=== PATIENT | female | born 1965 | race Caucasian/White ===

== ENCOUNTER → 2017-02-07 | Outpatient (CLI) | payer OTHER ==
[~2017-02-07] MED LIST: GABA300C1 PO
[2017-02-07 08:48] LABS: EOSINOPHILS # (AUTO) 0.2 K/uL (0-0.4)
[2017-02-07 08:51] LABS: BASOPHILS % (AUTO) 0.3 % (0.0-2.0); EOSINOPHILS % (AUTO) 1.5 % (0.0-4.0); HEMATOCRIT 46.4 % (36-48); HEMOGLOBIN 14.5 g/dL (12.0-16.0); LYMPHOCYTES % (AUTO) 8.2 % (20.5-51.1); MEAN CORPUSCULAR HEMOGLOBIN 28 pg (27-31); MEAN CORPUSCULAR HGB CONC 31 g/dL (33-37); MEAN CORPUSCULAR VOLUME 90 fL (80-94); MONOCYTES # (AUTO) 0.8 K/uL (0.8-1.0); MONOCYTES % (AUTO) 6.5 % (1.7-9.3); NEUTROPHILS # (AUTO) 9.8 K/uL (1.8-7.7); NEUTROPHILS % (AUTO) 83.5 % (42.2-75.2); PLATELET COUNT (AUTO) 337 K/uL (140-450); RED BLOOD CELL COUNT(AUTO) 5.15 MIL/uL (4.20-5.40); RED CELL DISTRIBUTION WIDTH 17.1 % (11.6-13.7); WHITE BLOOD COUNT (AUTO) 11.8 K/uL (4.8-10.8)
[2017-02-07 09:38] LABS: ALBUMIN 3.5 g/dL (3.4-5.0); ANION GAP 10.9 (8-16); CALCIUM 8.8 mg/dL (8.5-10.1); CARBON DIOXIDE 30.3 mmol/L (21-32); CREATININE 0.8 mg/dL (0.6-1.3); POTASSIUM 4.2 mmol/L (3.5-5.1); THYROID STIMULATING HORMONE 3.42 uIU/mL (0.34-3.76); TOTAL BILIRUBIN 0.4 mg/dL (0.0-1.0); TOTAL PROTEIN, SERUM 7.4 g/dL (6.4-8.2)
[2017-02-07 10:05] LABS: CHOL/HDL RATIO 2.6 (1-4.5)
[2017-02-09 09:08] LABS: VITAMIN D, 25-HYDROXY 42.2 ng/mL (30.0-100.0)
[2017-02-09 13:09] LABS: HEMOGLOBIN A1C 6.6 % (4.8-5.6)
== END | disposition home or self-care (01) ==
LOC: MLB 08:05
PROVIDERS: ATTEND Internal Medicine Geriatric Medicine
DX: E11.9 Type 2 diabetes mellitus without complications (principal)
CPT/HCPCS: 36415; 80053; 82043; 82306; 83036; 84443; 85025

== ENCOUNTER 2017-03-03 10:37 | Outpatient (CLI) | payer OTHER ==
[2017-03-03 12:02] LABS: HEMOGLOBIN 14.2 g/dL (12.0-16.0); MEAN CORPUSCULAR HEMOGLOBIN 28 pg (27-31); MEAN CORPUSCULAR HGB CONC 31 g/dL (33-37); MEAN CORPUSCULAR VOLUME 90 fL (80-94); PLATELET COUNT (AUTO) 372 K/uL (140-450); RED BLOOD CELL COUNT(AUTO) 4.99 MIL/uL (4.20-5.40); WHITE BLOOD COUNT (AUTO) 13.4 K/uL (4.8-10.8)
[2017-03-03 12:10] LABS: ALBUMIN 3.8 g/dL (3.4-5.0); ANION GAP 11.7 (8-16); CALCIUM 9.7 mg/dL (8.5-10.1); CARBON DIOXIDE 31.6 mmol/L (21-32); CREATININE 0.7 mg/dL (0.6-1.3); POTASSIUM 4.3 mmol/L (3.5-5.1); TOTAL BILIRUBIN 0.5 mg/dL (0.0-1.0); TOTAL PROTEIN, SERUM 7.7 g/dL (6.4-8.2)
[2017-03-03 13:23] LABS: BAND % (MANUAL) 5 % (0-8); EOSINOPHILS % (MANUAL) 1 % (0-4); LYMPHOCYTES % (MANUAL) 6 % (20-46); MONOCYTES % (MANUAL) 3 % (5-12); NEUTROPHILS % (MANUAL) 85 (43-65); PLATELET ESTIMATE ADEQUATE
[2017-03-04 11:43] LABS: CANCER ANTIGEN 125 401.7 U/mL (0.0-38.1); CARCINOEMBRYONIC AG 117.5 ng/mL (0.0-4.7)
[2017-03-04 16:51] LABS: HEMOGLOBIN A1C 6.5 % (4.8-5.6)
[2017-03-05 09:30] LABS: ALDOLASE SERUM 8.2 U/L (3.3-10.3)
== END 2017-03-03 19:59 | disposition home or self-care (01) ==
LOC: MLB 10:37
PROVIDERS: ATTEND Internal Medicine Geriatric Medicine
DX: N63 Unspecified lump in breast (principal); Z85.038 Personal history of other malignant neoplasm of large intestine
CPT/HCPCS: 36415; 80053; 82085; 82378; 83036; 83520; 85025; 85651; 86140; 86304

== ENCOUNTER 2017-04-14 18:20 | Outpatient (CLI) | payer OTHER ==
[2017-04-16 15:13] LABS: ANTI-MYELOPEROXIDASE (MPO) <9.0 U/mL (0.0-9.0); ANTI-PROTEINASE 3 (PR-3) AB <3.5 U/mL (0.0-3.5); ATYPICAL pANCA <1:20 titer (Neg:<1:20); PERINUCLEAR (P-ANCA) <1:20 titer (Neg:<1:20)
== END 2017-04-14 20:33 | disposition home or self-care (01) ==
LOC: MLB 18:20
DX: R23.3 Spontaneous ecchymoses (principal)
CPT/HCPCS: 36415

== ENCOUNTER 2017-04-19 11:04 | Outpatient (CLI) | payer OTHER | END 2017-04-19 21:55 | disposition home or self-care (01) | LOC: MLB 11:04 | PROVIDERS: ATTEND Obstetrics & Gynecology | DX: N83.209 Unspecified ovarian cyst, unspecified side (principal) | CPT/HCPCS: 36415; 86304 ==

== ENCOUNTER 2017-04-21 18:13 | Outpatient (CLI) | payer OTHER ==
[2017-04-21 18:46] LABS: BASOPHILS % (AUTO) 0.3 % (0.0-2.0); EOSINOPHILS # (AUTO) 0.2 K/uL (0-0.4); EOSINOPHILS % (AUTO) 1.9 % (0.0-4.0); HEMATOCRIT 40.4 % (36-48); HEMOGLOBIN 12.9 g/dL (12.0-16.0); LYMPHOCYTES # (AUTO) 0.8 K/uL (2.5-16.5); LYMPHOCYTES % (AUTO) 7.4 % (20.5-51.1); MEAN CORPUSCULAR HEMOGLOBIN 29 pg (27-31); MEAN CORPUSCULAR HGB CONC 32 g/dL (33-37); MEAN CORPUSCULAR VOLUME 89 fL (80-94); MONOCYTES # (AUTO) 0.6 K/uL (0.8-1.0); MONOCYTES % (AUTO) 5.8 % (1.7-9.3); NEUTROPHILS # (AUTO) 9.1 K/uL (1.8-7.7); NEUTROPHILS % (AUTO) 84.6 % (42.2-75.2); PLATELET COUNT (AUTO) 441 K/uL (140-450); RED BLOOD CELL COUNT(AUTO) 4.52 MIL/uL (4.20-5.40); RED CELL DISTRIBUTION WIDTH 17.4 % (11.6-13.7); WHITE BLOOD COUNT (AUTO) 10.7 K/uL (4.8-10.8)
[2017-04-21 19:04] LABS: INR 1.1 (0.8-1.2); PARTIAL THROMBOPLASTIN TIME 27.3 secs (22-35.6); PROTHROMBIN TIME 10.9 secs (10.8-13.4)
[2017-04-21 19:05] LABS: ANION GAP 14.8 (8-16); CREATININE 0.7 mg/dL (0.6-1.3); POTASSIUM 3.8 mmol/L (3.5-5.1); TOTAL BILIRUBIN 0.4 mg/dL (0.0-1.0); TOTAL PROTEIN, SERUM 7.4 g/dL (6.4-8.2)
== END 2017-04-21 20:12 | disposition home or self-care (01) ==
LOC: MLB 18:13
DX: I10 Essential (primary) hypertension (principal); E11.9 Type 2 diabetes mellitus without complications; Z85.038 Personal history of other malignant neoplasm of large intestine
CPT/HCPCS: 36415; 80053; 82378; 85025; 85610; 85730

== ENCOUNTER 2017-06-05 16:02 | Inpatient (IN) | payer OTHER ==
[~2017-06-05] VITALS: Ht 154.9 cm; Wt 74.4 kg
[2017-06-05 16:26] VITALS: BP 161/96
[2017-06-05] MEDS ORDERED: ONDANSETRON 4 MG/2 ML VIAL IVP ONE (16:40)
--- NOTE | 2017-06-05 16:49 | NUR ---
PATIENT IN OF. PATIENT TAKEN FOR CXR VIA W/C
[2017-06-05 16:56] LABS: BASOPHILS % (AUTO) 0.3 % (0.0-2.0); EOSINOPHILS # (AUTO) 0.1 K/uL (0-0.4); EOSINOPHILS % (AUTO) 0.9 % (0.0-4.0); HEMATOCRIT 35.7 % (36-48); HEMOGLOBIN 11.2 g/dL (12.0-16.0); LYMPHOCYTES # (AUTO) 1.5 K/uL (2.5-16.5); MEAN CORPUSCULAR HEMOGLOBIN 28 pg (27-31); MEAN CORPUSCULAR HGB CONC 32 g/dL (33-37); MEAN CORPUSCULAR VOLUME 89 fL (80-94); MONOCYTES # (AUTO) 0.8 K/uL (0.8-1.0); MONOCYTES % (AUTO) 5.9 % (1.7-9.3); NEUTROPHILS # (AUTO) 11.2 K/uL (1.8-7.7); NEUTROPHILS % (AUTO) 81.9 % (42.2-75.2); PLATELET COUNT (AUTO) 535 K/uL (140-450); RED BLOOD CELL COUNT(AUTO) 4.03 MIL/uL (4.20-5.40); RED CELL DISTRIBUTION WIDTH 17.6 % (11.6-13.7); WHITE BLOOD COUNT (AUTO) 13.6 K/uL (4.8-10.8)
[2017-06-05 17:13] LABS: AMYLASE 76 U/L (25-115); ANION GAP 14.9 (8-16); CARBON DIOXIDE 29.6 mmol/L (21-32); LIPASE 158 U/L (73-393); POTASSIUM 4.5 mmol/L (3.5-5.1)
[2017-06-05 17:14] LABS: CALCIUM 9.7 mg/dL (8.5-10.1); CREATININE 0.7 mg/dL (0.6-1.3)
[2017-06-05 17:16] LABS: ALBUMIN 2.8 g/dL (3.4-5.0); TOTAL BILIRUBIN 0.4 mg/dL (0.0-1.0); TOTAL PROTEIN, SERUM 7.8 g/dL (6.4-8.2)
[2017-06-05 17:17] LABS: PROTHROMBIN TIME 10.4 secs (10.8-13.4)
[2017-06-05] MEDS ORDERED: FUROSEMIDE 40 MG/4 ML VIAL IVP ONE (17:25)
[2017-06-05] MEDS ORDERED: ONDANSETRON 4 MG/2 ML VIAL IVP PRN (17:40)
[2017-06-05] MEDS ORDERED: ACETAMINOPHEN 325 MG TAB PO PRN (17:40)
[2017-06-05] MEDS ORDERED: HYDROcodone/APAP 7.5/325 MG 1 TAB PO PRN (17:40)
[2017-06-05 18:03] LABS: PARTIAL THROMBOPLASTIN TIME 27.6 secs (22-35.6)
[2017-06-05 18:19] LABS: CHOL/HDL RATIO 5.4 (1-4.5); PHOSPHORUS 3.4 mg/dL (2.5-4.9)
[2017-06-05 18:32] LABS: FREE T4 (FREE THYROXINE) 0.79 ng/dL (0.76-1.46); THYROID STIMULATING HORMONE 8.71 uIU/mL (0.34-3.74)
--- NOTE | 2017-06-05 18:45 | NUR ---
PT ON UNIT. NO S/S OF ACUTE DISTRESS. PT DENIES PAIN. IV SITE PATENT AND INTACT. PT'S DAUGHTER AT BEDSIDE. VS 177/94 HR 87 RR 18 O2 88% ON 3L NC TEMP 100.2. PT DROWSY AT THIS TIME AND UNABLE TO ANSWER QUESTIONS. PT ORIENTED TO ROOM. CALL LIGHT WITHIN REACH. SAFETY MEASURES ENSURED. WILL CONTINUE TO MONITOR.
--- NOTE | 2017-06-05 18:50 | NUR ---
PATIENT PRESENTS TO ED WITH C/O SOB . PT STATES THAT SHE HAS COLON CANCER AND ASCITES WORSENING. DENIES N/V/D; SKIN IS PINK/WARM/DRY; LEFT FOOT PITTING EDEMA NOTED. AAOX4 WITH EVEN AND STEADY GAIT. LUNGS CLEAR BL; HR EVEN AND REGULAR; PATIENT STATES PAIN OF 0/10 AT THIS TIME; VSS; PATIENT POSITIONED FOR COMFORT; HOB ELEVATED; BEDRAILS UP X2; BED DOWN. ER MD MADE AWARE OF PT STATUS.
--- NOTE | 2017-06-05 19:12 | NUR ---
Patient will be admitted to care of . Admited to Telemetry. Will go to room 112B. Belongings list completed. Report to Victoriano.
--- NOTE | 2017-06-05 19:21 | NUR ---
ENDORSED PLAN OF CARE TO NIGHT RN. PT REMAINS STABLE.
--- NOTE | 2017-06-05 19:21 | NUR ---
RECEIVED REPORT FROM DAY RN FOR CONTINUITY OF CARE. PATIENT IS ALERT AND ORIENTED X4, DISCUSSED PLAN OF CARE WITH PATIENT, VERBALIZED UNDERSTANDING. SHIFT ASSESSMENT DONE, VITAL SIGNS TAKEN. PATIENT O2 SAT 88-91% ON ROOM AIR, PLACED ON NASAL CANNULA NOW UP TO 95%. PATIENT DENIES PAIN AT THIS TIME. IV PATENT AND INFUSING FLUIDS WELL. SKIN INTACT. LONG CATHETER IN PLACE DRAINING CLEAR YELLOW URINE TO GRAVITY. MRSA SWAB COLLECTED WRISTBANDS APPLIED. SAFETY/FALL PRECAUTIONS ENFORCED, CALL LIGHT WITHIN REACH. WILL CONTINUE TO MONITOR FREQUENTLY.
[2017-06-05 20:00] VITALS: BP 150/78
--- NOTE | 2017-06-05 20:00 | NUR ---
DR. ESPINOZA AT BESIDE, WILL FOLLOW OUT ORDERS GIVEN.
[2017-06-05] MEDS ORDERED: MORPHINE SULFATE 2 MG/ML SYR IVP PRN (20:05)
[2017-06-05] MEDS ORDERED: HYDR-3423 PO (20:22)
[2017-06-05 20:24] LABS: APPEARANCE,URINE CLEAR (CLEAR); BILIRUBIN,URINE NEGATIVE (NEGATIVE); BLOOD, URINE NEGATIVE (NEGATIVE); COLOR,URINE YELLOW (YELLOW); LEUKOCYTE ESTERASE ,URINE NEGATIVE (NEGATIVE); NITRITE, URINE NEGATIVE (NEGATIVE); PROTEIN,URINE NEGATIVE (NEGATIVE); UGLUCOSE NEGATIVE (NEGATIVE); UROBILINOGEN,URINE 0.2 EU/dL (0.2 - 1)
[2017-06-05] MEDS: DOCUSATE SODIUM 100 MG GELCAP PO SCH (21:04)
[2017-06-05] MEDS: NACL 0.9% 1,000 ML IV SCH (21:05)
--- NOTE | 2017-06-05 21:05 | NUR ---
DUE MEDICATIONS ADMINISTERED, TOLERATED WELL. PATIENT C/O PAIN, MEDICATED PER MD ORDER. CALL LIGHT WITHIN REACH.
--- NOTE | 2017-06-05 23:51 | NUR ---
VITAL SIGNS TAKEN, STABLE. PATIENT C/O ABDOMINAL PAIN, MEDICATED PER MD ORDER. CALL LIGHT WITHIN REACH, WILL CONTINUE TO MONITOR.
[2017-06-06] VITALS: BP 142/85
--- NOTE | 2017-06-06 02:07 | NUR ---
PATIENT SLEEPING AT THIS TIME, CALL LIGHT WITHIN REACH. SAFETY MEASURES ENFORCED.
[2017-06-06] MEDS: SIMVASTATIN 20 MG TAB PO SCH ×2 (03:04→20:56)
[2017-06-06] MEDS: LOSARTAN 50 MG TAB PO SCH ×2 (03:04→09:21)
[2017-06-06] MEDS: FUROSEMIDE 40 MG/4 ML VIAL IVP SCH ×3 (03:33→17:40)
[2017-06-06 04:00] VITALS: BP 142/91
--- NOTE | 2017-06-06 04:10 | NUR ---
VITAL SIGNS STABLE, PATIENT RESTING IN BED, NO S/S OF DISTRESS OR DISCOMFORT NOTED. CALL LIGHT WITHIN REACH.
--- NOTE | 2017-06-06 06:00 | NUR ---
PATIENT RESTING IN BED WATCHING TV, NO S/S OF DISTRESS OR DISCOMFORT NOTED. CALL LIGHT WITHIN REACH.
--- NOTE | 2017-06-06 07:17 | NUR ---
ENDORSED PATIENT TO DAY RN FOR CONTINUITY OF CARE, PATIENT IS IN STABLE CONDITION.
--- NOTE | 2017-06-06 07:20 | NUR ---
RECEIVED REPORT FROM NIGHT RN. PT RESTING IN BED. AAOX4. NO S/S OF ACUTE DISTRESS. PT DENIES PAIN. IV SITE PATENT AND INTACT. LONG CATHETER PATENT. ON O2 3L NC. CALL LIGHT WITHIN REACH. SAFETY MEASURES ENSURED. WILL CONTINUE TO MONITOR.
[2017-06-06 08:00] VITALS: BP 162/98
[2017-06-06] MEDS: DOCUSATE SODIUM 100 MG GELCAP PO SCH ×2 (09:21→20:56)
[2017-06-06] MEDS: HYDROCHLOROTHIAZIDE 25 MG TAB PO SCH (09:21)
--- NOTE | 2017-06-06 09:24 | NUR ---
AM MEDS GIVEN WITH EDUCATIONS. PT VERBALIZES UNDERSTANDING. WILL CONTINUE TO MONITOR.
[2017-06-06 10:28] LABS: BASOPHILS % (AUTO) 0.3 % (0.0-2.0); EOSINOPHILS # (AUTO) 0.1 K/uL (0-0.4); HEMATOCRIT 35.4 % (36-48); HEMOGLOBIN 11.5 g/dL (12.0-16.0); LYMPHOCYTES # (AUTO) 1.4 K/uL (2.5-16.5); LYMPHOCYTES % (AUTO) 11.1 % (20.5-51.1); MEAN CORPUSCULAR HEMOGLOBIN 28 pg (27-31); MEAN CORPUSCULAR HGB CONC 33 g/dL (33-37); MEAN CORPUSCULAR VOLUME 87 fL (80-94); MONOCYTES # (AUTO) 0.9 K/uL (0.8-1.0); MONOCYTES % (AUTO) 7.3 % (1.7-9.3); NEUTROPHILS # (AUTO) 10.1 K/uL (1.8-7.7); NEUTROPHILS % (AUTO) 80.3 % (42.2-75.2); PLATELET COUNT (AUTO) 534 K/uL (140-450); RED BLOOD CELL COUNT(AUTO) 4.08 MIL/uL (4.20-5.40); RED CELL DISTRIBUTION WIDTH 17.3 % (11.6-13.7); WHITE BLOOD COUNT (AUTO) 12.5 K/uL (4.8-10.8)
[2017-06-06 10:42] LABS: ANION GAP 10.6 (8-16); CALCIUM 9.9 mg/dL (8.5-10.1); CARBON DIOXIDE 34.3 mmol/L (21-32); CREATININE 0.7 mg/dL (0.6-1.3); POTASSIUM 3.9 mmol/L (3.5-5.1)
[2017-06-06 10:47] LABS: MAGNESIUM 1.8 mg/dL (1.8-2.4); PHOSPHORUS 4.4 mg/dL (2.5-4.9)
[2017-06-06 12:00] VITALS: BP 151/91
--- NOTE | 2017-06-06 12:14 | NUR ---
PT RESTING IN BED. NO S/S OF ACUTE DISTRESS. ON O2 3L NC. PT DENIES PAIN. FAMILY AT BEDSIDE. WILL CONTINUE TO MONITOR.
[2017-06-06] MEDS: NACL 0.9% 1,000 ML IV SCH (13:37)
[2017-06-06] MEDS ORDERED: LORazepam 2 MG/ML VIAL IVP SCH (14:00)
--- NOTE | 2017-06-06 14:26 | NUR ---
ATIVAN 1 MG IVP GIVEN FOR THE PARACENTESIS PROCEDURE .
--- NOTE | 2017-06-06 14:32 | NUR ---
PARACENTESIS STARTED. PT'S VSS. DR. CARRERO AT BEDSIDE. WILL CONTINUE TO MONITOR.
--- NOTE | 2017-06-06 15:05 | NUR ---
PARACENTESIS COMPLETE. 4L REMOVED. NO S/S OF ACUTE DISTRESS. PT DENIES PAIN. WILL CONTINUE TO MONITOR.
[2017-06-06 16:00] VITALS: BP 128/79
[2017-06-06 16:42] LABS: APPEARANCE,UNSPUN,BODY FLUID CLOUDY (CLEAR); SPECIMENTYPE,BODY FLUID PARACENTESIS
[2017-06-06 16:54] LABS: TOTAL VOLUME,BODY FLUID 4424 mL
[2017-06-06 16:55] LABS: APPEARANCE,SPUN,BODY FLUID CLEAR (CLEAR); COLOR,BODY FLUID YELLOW (LT YELLOW)
[2017-06-06 17:07] LABS: GLUCOSE,BODY FLUID 101 mg/dL
--- NOTE | 2017-06-06 17:16 | NUR ---
PT SLEEPING IN BED. NO S/S OF ACUTE DISTRESS. PT DENIES PAIN. CALL LIGHT WITHIN REACH. WILL CONTINUE TO MONITOR.
[2017-06-06 17:18] LABS: PROTEIN, BODY FLUID 3.8 g/dL
--- NOTE | 2017-06-06 17:51 | NUR ---
PT'S LONG DISCONTINUED.
[2017-06-06 18:10] LABS: RBC, BODY FLUID 10000 /cu. mm.; WBC, BODY FLUID 0 /cu. mm.
--- NOTE | 2017-06-06 20:04 | NUR ---
ENDORSED PLAN OF CARE TO NIGHT RN. PT REMAINS STABLE.
--- NOTE | 2017-06-06 20:10 | NUR ---
RECEIVED REPORTS FROM NILDA ALTMAN, PATIENT SITTING IN BED, FAMILY MEMBER AT BEDSIDE. NO S/S OF ACUTE DISTRESS NOTED, PATIENT IS ON 3L NC O2, AND DENIES PAIN AT THIS TIME. IV PATENT AND INTACT, INFUSING NS AT 50ML/HR. PLAN OF CARE DISCUSSED, PATIENT VERBALIZED UNDERSTANDING. CALL LIGHT WITHIN REACH, SIDE RAILS UP X2, BED AT LOWEST POSITION, WILL CONTINUE TO MONITOR.
--- NOTE | 2017-06-06 22:49 | NUR ---
PATIENT IS SLEEPING AT THIS TIME. NO S/S OF ACUTE DISTRESS NOTED, RESPIRATION EVEN AND UNLABORED, CALL LIGHT WITHIN REACH, SAFETY MEASURE ENSURED, WILL CONTINUE TO MONITOR.
[2017-06-07] VITALS: BP 124/77
--- NOTE | 2017-06-07 00:07 | NUR ---
PATIENT ASLEEP IN BED, EASY TO AROUSE. VITAL SIGNS STABLE. NO S/S OF ACUTE DISTRESS NOTED, CALL LIGHT WITHIN REACH, ALL NEEDS ATTENDED, SAFETY MEASURE ENSURED, WILL CONTINUE TO MONITOR.
--- NOTE | 2017-06-07 01:50 | NUR ---
PATIENT STATED," I NEED SOMETHING TO HELP ME SLEEP." MADE DR. ESPINOZA AWARE.
[2017-06-07] MEDS ORDERED: diphenhydrAMINE 50 MG/ML VIAL IVP SCH (01:55)
--- NOTE | 2017-06-07 04:25 | NUR ---
PATIENT IS SLEEPING AT THIS TIME, NO S/S OF ACUTE DISTRESS NOTED, RESPIRATION EVEN AND UNLABORED, CALL LIGHT WITHIN REACH, SAFETY MEASURE MAINTAINED, WILL CONTINUE TO MONITOR.
--- NOTE | 2017-06-07 05:36 | NUR ---
IV PUMP BEEPING, FLUSHED IV WITH NS. IV PATENT AND INTACT, INFUSING NS AT 50ML/HR.
[2017-06-07 06:15] LABS: BASOPHILS % (AUTO) 0.3 % (0.0-2.0); EOSINOPHILS # (AUTO) 0.2 K/uL (0-0.4); EOSINOPHILS % (AUTO) 1.9 % (0.0-4.0); HEMATOCRIT 32.6 % (36-48); HEMOGLOBIN 10.6 g/dL (12.0-16.0); LYMPHOCYTES # (AUTO) 1.4 K/uL (2.5-16.5); MEAN CORPUSCULAR HEMOGLOBIN 29 pg (27-31); MEAN CORPUSCULAR HGB CONC 33 g/dL (33-37); MEAN CORPUSCULAR VOLUME 87 fL (80-94); MONOCYTES % (AUTO) 8.2 % (1.7-9.3); NEUTROPHILS # (AUTO) 9.8 K/uL (1.8-7.7); NEUTROPHILS % (AUTO) 78.6 % (42.2-75.2); PLATELET COUNT (AUTO) 493 K/uL (140-450); RED BLOOD CELL COUNT(AUTO) 3.73 MIL/uL (4.20-5.40); RED CELL DISTRIBUTION WIDTH 17.2 % (11.6-13.7); WHITE BLOOD COUNT (AUTO) 12.4 K/uL (4.8-10.8)
[2017-06-07 06:43] LABS: ANION GAP 10.1 (8-16); CALCIUM 9.1 mg/dL (8.5-10.1); CARBON DIOXIDE 32.5 mmol/L (21-32); CREATININE 0.7 mg/dL (0.6-1.3); POTASSIUM 3.6 mmol/L (3.5-5.1)
--- NOTE | 2017-06-07 06:50 | NUR ---
PATIENT SLEEPING IN BED, NO S/S OF ACUTE DISTRESS NOTED, RESPIRATION EVEN AND UNLABORED, CALL LIGHT WITHIN REACH, SAFETY MEASURE MAINTAINED, WILL CONTINUE TO MONITOR.
[2017-06-07 06:58] LABS: MAGNESIUM 1.8 mg/dL (1.8-2.4); PHOSPHORUS 4.4 mg/dL (2.5-4.9)
--- NOTE | 2017-06-07 07:31 | NUR ---
ENDORSED PLAN OF CARE TO DAY RN, PATIENT IS IN STABLE CONDITION. RESPIRATION EVEN AND UNLABORED, NO S/S OF ACUTE DISTRESS NOTED.
--- NOTE | 2017-06-07 07:32 | NUR ---
RECEIVED PT FROM THE WIRE STRAIGHTENING MACHINE OPERATOR NURSE. PT IS AWAKE AND ALERT AND ORIENTED. PT IS CURRENTLY ON NC O2 3L. PT IV ON R HAND 22G NS AT 50ML. PT DENIES PAIN. V/S WITHIN NORMAL LIMITS. PT SKIN INTACT. PT AMBULATES. ABDOMEN DISTENDED BUT SOFT. NO DRAINING FROM THE PARACENTESIS SITE. PLAN FOR TODAY: WEAN OFF THE O2, D/C. ENCOURAGED PT TO REMOVE NC AND STAY ROOM AIR. WILL CHECK SATURATION. WILL CONTINUE TO MONITOR PT.
[2017-06-07 08:00] VITALS: BP 134/82
[2017-06-07] MEDS: FUROSEMIDE 40 MG/4 ML VIAL IVP SCH (08:34)
[2017-06-07] MEDS: LOSARTAN 50 MG TAB PO SCH (08:35)
[2017-06-07] MEDS: HYDROCHLOROTHIAZIDE 25 MG TAB PO SCH (08:35)
[2017-06-07] MEDS: DOCUSATE SODIUM 100 MG GELCAP PO SCH (08:35)
[2017-06-07] MEDS: NACL 0.9% 1,000 ML IV SCH (08:36)
--- NOTE | 2017-06-07 08:41 | NUR ---
ADMINISTERED MORNING MEDS. PT TOLERATED WELL. PLAN FOR TODAY PER MD: Yann SPOKE TO PT. PT IS AWARE. IS TRYING TO GET A HOLD OF HER SISTER TO COME. IT WILL BE PROBABLY AFTER 2PM. SHE WILL GET UP AND AMBULATE SOME THIS MORNING. WILL CONTINUE TO MONITOR PT. Addendum: 06/07/17 at 1819 by Ingris Aquino RN PT IS ON ROOM AIR, SATURATION AT 92%
[2017-06-07] MEDS ORDERED: SIMV20TA6 PO (09:18)
[2017-06-07] MEDS ORDERED: LAS20I PO (09:18)
--- NOTE | 2017-06-07 09:34 | NUR ---
PATIENT HAS BEEN SCREENED AND CATEGORIZED HIGH NUTRITION RISK. PATIENT WILL BE SEEN WITHIN 1-2 DAYS OF ADMISSION. 06/06/17-06/07/[address]
--- NOTE | 2017-06-07 10:06 | NUR ---
ENCOURAGED PT TO AMBULATE. PT WILL GET UP AND WALK SOME AND DO MORNING ADL'S.
[2017-06-07] MEDS ORDERED: FURO-570 PO (11:38)
--- NOTE | 2017-06-07 12:48 | NUR ---
WENT OVER D/C INSTRUCTIONS WITH PT. PT VERBALIZED UNDERSTANDING. ANSWERED ALL QUESTIONS. PT SIGNED APPROPRIATE DOCUMENTS. REMOVED IV, CANNULA INTACT. NO BLEEDING NOTED. REMOVED ID BANDS. PT'S FAMILY IS HERE. WILL GET DRESSED AND GATHER PERSONAL BELONGINGS AND WILL LET ME KNOW WHEN SHE IS READY TO GO. WILL GET WHEELCHAIR AVAILABLE. Addendum: 06/07/17 at 1544 by Ingris Aquino RN PT GIVEN WRITTEN INSTRUCTION AND DEMONSTRATED HOW TO CARE FOR PARACENTESIS SITE. PT VERBALIZED UNDERSTANDING.
--- NOTE | 2017-06-07 13:35 | NUR ---
PT READY TO GO. MISSILE TECHNICIAN WHEELED PT OUT. PT IS IN STABLE CONDITION W/ FAMILY AT HER SIDE.
[2017-06-08] MEDS ORDERED: GABAPENTIN 300 MG CAP PO SCH (09:00)
== END 2017-06-07 13:30 | disposition home or self-care (01) | DRG 374 ==
LOC: MED 16:02 → MTU 17:46
PROVIDERS: ADMIT Student in an Organized Health Care Education/Training Program; ATTEND Student in an Organized Health Care Education/Training Program
PROC: 0W9G30Z Drainage of Peritoneal Cavity with Drainage Device, Percutaneous Approach (ICD-10-PCS; principal; 2017-06-06)
DX: C18.9 Malignant neoplasm of colon, unspecified (principal); N17.0 Acute kidney failure with tubular necrosis; E43 Unspecified severe protein-calorie malnutrition; I50.43 Acute on chronic combined systolic (congestive) and diastolic (congestive) heart failure; J96.90 Respiratory failure, unspecified, unspecified whether with hypoxia or hypercapnia; R18.0 Malignant ascites; R14.0 Abdominal distension (gaseous); E11.65 Type 2 diabetes mellitus with hyperglycemia; E78.5 Hyperlipidemia, unspecified; K59.00 Constipation, unspecified; E11.51 Type 2 diabetes mellitus with diabetic peripheral angiopathy without gangrene; E02 Subclinical iodine-deficiency hypothyroidism; F41.9 Anxiety disorder, unspecified; I00 Rheumatic fever without heart involvement; D63.8 Anemia in other chronic diseases classified elsewhere; J45.909 Unspecified asthma, uncomplicated; D47.3 Essential (hemorrhagic) thrombocythemia; E87.8 Other disorders of electrolyte and fluid balance, not elsewhere classified; I11.0 Hypertensive heart disease with heart failure; E11.9 Type 2 diabetes mellitus without complications; I10 Essential (primary) hypertension; Z68.31 Body mass index [BMI] 31.0-31.9, adult
CPT/HCPCS: 36415; 49083; 51702; 71020; 80048; 80053; 81003; 81025; 82150; 82553; 82945; 82948; 83036; 83615; 83690; 83735; 83880; 84100; 84157; 84439; 84443; 84484; 85025; 85379; 85610; 85730; 87070; 87075; 87081; 87205; 89051; 93005; 96374; 96375; 99285; J1200; J1940; J2001; J2060; J2270; J2405; J7030

== ENCOUNTER 2017-07-29 15:37 | Outpatient (CLI) | payer OTHER ==
[~2017-07-29 15:37] MED LIST changes: +APPLE CIDER VIN1 TAB PO; +BEE POLLEN PO; +FLAX OIL1000 MG PO; -GABA300C1 PO; +HEXAVITAMIN1 CAP PO; +LASIX10 MG/M2 PO; +LASIX40 MG PO; +LOSARTAN POTASS1 TAB PO; +NEURONTIN300 M1 PO; +PRINIVIL10 M1 PO; +SIMVASTATIN20 M1 PO
== END 2017-07-29 20:09 | disposition home or self-care (01) ==
LOC: MLB 15:37
PROVIDERS: ATTEND Internal Medicine Geriatric Medicine
DX: J90 Pleural effusion, not elsewhere classified (principal); C18.9 Malignant neoplasm of colon, unspecified; R60.0 Localized edema